=== PATIENT | female | born 1970 | race Caucasian/White ===

== ENCOUNTER 2016-09-22 09:57 | Day surgery (SDC) | payer OTHER ==
[~2016-09-22 09:57] MED LIST: NO MEDICATION
[2016-09-23] MEDS ORDERED: MOTRIN IB200 M1 PO (04:06)
[2016-09-23] MEDS ORDERED: IBUPROFEN800 M1 PO (09:43)
[2016-09-23] MEDS ORDERED: COLACE100 M1 PO (09:44)
[2016-09-23] MEDS ORDERED: PHENERGAN12.5 M2 PO (09:45)
[2016-09-23] MEDS ORDERED: NORCO 5-325 TA1 EACH PO (09:46)
== END 2016-09-23 11:30 ==
LOC: SHSB 09:57 → ORW 11:22 → OBGE 15:10
PROC: 0UB74ZZ Excision of Bilateral Fallopian Tubes, Percutaneous Endoscopic Approach (ICD-10-PCS; principal; 2016-09-22)
PROC: 0UTC4ZZ Resection of Cervix, Percutaneous Endoscopic Approach (ICD-10-PCS; principal; 2016-09-22)
PROC: 0UT94ZZ Resection of Uterus, Percutaneous Endoscopic Approach (ICD-10-PCS; principal; 2016-09-22)
PROC: 0UB04ZZ Excision of Right Ovary, Percutaneous Endoscopic Approach (ICD-10-PCS; principal; 2016-09-22)
DX: D25.9 Leiomyoma of uterus, unspecified (principal); N83.01 Follicular cyst of right ovary; N70.11 Chronic salpingitis; H91.93 Unspecified hearing loss, bilateral; J30.9 Allergic rhinitis, unspecified; E55.9 Vitamin D deficiency, unspecified; Z98.890 Other specified postprocedural states; Z88.0 Allergy status to penicillin; Z88.6 Allergy status to analgesic agent; Z79.899 Other long term (current) drug therapy
CPT/HCPCS: J1580; J1885; J2405; J7030; J7121